=== PATIENT | male | born 1960 | race Two or more races ===

== ENCOUNTER 2019-09-24 21:00 | Emergency (ER) | payer OTHER ==
[~2019-09-24] VITALS: Ht 170.2 cm; Wt 85.3 kg
[2019-09-24 21:04] VITALS: Ht 170.2 cm; Wt 85.3 kg
[2019-09-24 23:31] LABS: AMPHETAMINE QUAL UR NONE DETECTED (See below)
[2019-09-25 00:19] VITALS: BP 143/86
== END 2019-09-25 00:19 | disposition home or self-care (01) ==
LOC: ED 21:00
PROVIDERS: Emergency Medicine
DX: S50.01XA Contusion of right elbow, initial encounter (principal); V63.5XXA Driver of heavy transport vehicle injured in collision with car, pick-up truck or van in traffic accident, initial encounter; Y93.I9 Activity, other involving external motion; Y92.413 State road as the place of occurrence of the external cause; Y99.8 Other external cause status